=== PATIENT | male | born 1945 | race Caucasian/White ===

== ENCOUNTER → 2019-04-11 | Outpatient (CLI) | payer MEDICARE, BC ==
--- NOTE | 2019-04-12 16:21 | RAD ---
EXAM DESCRIPTION: UGI: Rad-Fluoroscopy. CLINICAL HISTORY: Dysphagia. No abdominal pain. 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 The patient attempted to swallow barium pill with water. The patient swallowed gas-producing granules, water, and heavy density barium under fluoroscopic visualization. The images were obtained with the patient standing and horizontal. Patient drank medium density barium through a straw in the semi-prone position. 52 fluoroscopic cine loop images. 12 static fluoroscopic images. Total fluoroscopy time was 3.9 minutes. DAP: 42.1 Gy-cm2.. Dose 198.66 mGy. FINDINGS: Patient was unable to swallow the barium pill despite several attempts and several swallows of water. Patient able to swallow gas producing granules with water. On the swallowing mechanism, premature spillage of contrast material into the valleculae and piriform sinuses prior to the swallow. No penetration or aspiration. No obstruction to contrast flow in the mid or distal esophagus. No gastroesophageal narrowing. No mass effect. Minimal secondary contractions distally, otherwise primary peristaltic wave is almost complete. Small sliding hiatal hernia with no Schatzki ring. Minimal gastroesophageal reflux. Stomach was well distended with gas and contrast material. No mucosal lesions or mass effect. Duodenum was well distended with gas and contrast material. No mucosal lesions or mass effect. IMPRESSION: 1. Minimal premature spillage of contrast into the hypopharynx. No laryngeal penetration or aspiration. 2. No mass effect on the esophagus. Primary peristaltic wave is almost completely with minimal secondary contractions distally. Small sliding hiatal hernia and minimal gastroesophageal reflux. 3. No mucosal lesions in the stomach or duodenum and no mass effect. Electronically signed by: Salinas Pagan MD 04/12/2019 4:19 PM CDT
== END ==
LOC: RAD 10:04
PROVIDERS: ATTEND General Practice
DX: R13.10 Dysphagia, unspecified (principal)